=== PATIENT | male | born 1950 | race Caucasian/White ===

== ENCOUNTER 2017-02-12 23:15 | Observation (INO) | payer MEDICARE ==
[2017-02-13] MEDS ORDERED: SODIUM CHLORIDE 0.9% 1,000 ML IV ONE (00:30)
--- NOTE | 2017-02-13 00:33 | ED ---
Abdominal Pain HPI - General Source: patient, RN notes reviewed Mode of arrival: ambulatory Limitations: no limitations <Mandy Velasco - Last Filed: 02/13/17 04:26> <Gómez Judge - Last Filed: 02/13/17 04:52> - General Chief Complaint: Abdominal Pain Stated Complaint: abd pain Time Seen by Provider: 02/13/17 00:06 - History of Present Illness Initial Comments: Patient is a 66-year-old male presents to the emergency room for evaluation of abdominal pain. Patient states he has been constipated for the past 3 days. Patient states today, he drank 3 glasses of prune juice and had 3 large bowel movements. Patient states he still having abdominal pain. Patient states his abdomen is still gurgling. Patient denies nausea or vomiting. Patient states he's having 3 out of 10 pain. Patient states his stools were very dark. Patient denies fevers or chills. Patient denies headache or dizziness. Patient denies chest pain or shortness of breath. (Mandy Velasco) - Related Data Home Medications Medication Instructions Recorded Confirmed Aspirin 325 mg PO 1500 08/15/15 02/13/17 Atenolol [Tenormin] 25 mg PO 1500 08/15/15 02/13/17 Lisinopril [Zestril] 20 mg PO 1500 08/15/15 02/13/17 Loratadine [Claritin] 10 mg PO 1500 08/15/15 02/13/17 Simvastatin [Zocor] 40 mg PO 1500 08/15/15 02/13/17 metFORMIN HCL [Glucophage Xr] 500 mg PO 1500 08/15/15 02/13/17 Allergies Allergy/AdvReac Type Severity Reaction Status Date / Time codeine Allergy Unknown Verified 02/12/17 23:31 clarithromycin [From Biaxin] AdvReac Unknown Verified 02/12/17 23:31 Review of Systems ROS Other: All systems not noted in ROS Statement are negative. <Mandy Velasco - Last Filed: 02/13/17 04:26> ROS Other: All systems not noted in ROS Statement are negative. <Gómez Judge - Last Filed: 02/13/17 04:52> ROS Statement: Those systems with pertinent positive or pertinent negative responses have been documented in the HPI. Past Medical History Past Medical History: Coronary Artery Disease (CAD), Hyperlipidemia, Sleep Apnea /CPAP/BIPAP Additional Past Medical History / Comment(s): NO TX FOR SLEEP APNEA. "BS BORDERLINE, TAKES FOR PREVENTION." POS MINOR BLOOD IN STOOL, HAS HEMORRHOIDS. History of Any Multi-Drug Resistant Organisms: None Reported Past Surgical History: Heart Catheterization With Stent, Orthopedic Surgery Additional Past Surgical History / Comment(s): FINGER SURG. CARDIAC STENTS X3. Past Anesthesia/Blood Transfusion Reactions: No Reported Reaction Date of Last Stent Placement:: 09/2010 Past Psychological History: Depression Smoking Status: Current every day smoker Past Alcohol Use History: Occasional Past Drug Use History: None Reported - Past Family History Mother Sister(s) Family Medical History: Cancer <Mandy Velasco - Last Filed: 02/13/17 04:26> General Exam Limitations: no limitations General appearance: alert, in no apparent distress Head exam: Present: atraumatic, normocephalic, normal inspection Eye exam: Present: normal appearance ENT exam: Present: normal exam Neck exam: Present: normal inspection Respiratory exam: Present: normal lung sounds bilaterally. Absent: respiratory distress Cardiovascular Exam: Present: regular rate, normal rhythm, normal heart sounds GI/Abdominal exam: Present: soft, normal bowel sounds. Absent: distended, tenderness, guarding, rebound, rigid Rectal exam: Present: normal inspection, normal rectal tone, heme (+) stool Extremities exam: Present: normal inspection Back exam: Present: normal inspection Neurological exam: Present: alert, oriented X3, CN II-XII intact, normal gait Psychiatric exam: Present: normal affect, normal mood Skin exam: Present: warm, dry, intact, normal color. Absent: rash <Mandy Velasco - Last Filed: 02/13/17 04:26> <Gómez Judge - Last Filed: 02/13/17 04:52> - General Exam Comments Initial Comments: Laying in exam room, no acute distress. (Mandy Velasco) Medical Decision Making - Lab Data Result diagrams: 02/13/17 00:35 02/13/17 00:35 - Radiology Data Radiology results: report reviewed, image reviewed <Mandy Velasco - Last Filed: 02/13/17 04:26> - Lab Data Result diagrams: 02/13/17 00:35 02/13/17 00:35 <Gómez Judge - Last Filed: 02/13/17 04:52> - Medical Decision Making Patient is a 66-year-old male presents to the emergency room for evaluation of abdominal pain. Patient's hemoglobin 8.7. No other hemoglobin on file to compare to baseline. Patient does have a positive fecal occult. CT of abdomen/ pelvis negative for any acute findings. Will admit patient for reevaluation if hemoglobin level. Type and screen pending. (Mandy Velasco) I saw this patient in conjunction with the physician computer assistant. I performed independent history and physical exam. Agree with case management. (Gómez Judge) - Lab Data Lab Results 02/13/17 02/13/17 02/13/17 Range/Units 00:35 00:35 00:35 WBC 12.3 H (3.8-10.6) k/uL RBC 2.58 L (4.30-5.90) m/uL Hgb 8.7 L (13.0-17.5) gm/dL Hct 26.3 L (39.0-53.0) % MCV 102.1 H (80.0-100.0) fL MCH 33.8 (25.0-35.0) pg MCHC 33.1 (31.0-37.0) g/dL RDW 17.7 H (11.5-15.5) % Plt Count 342 (150-450) k/uL Neutrophils % 68 % Lymphocytes % 19 % Monocytes % 4 % Eosinophils % 5 % Basophils % 1 % Neutrophils # 8.4 H (1.3-7.7) k/uL Lymphocytes # 2.4 (1.0-4.8) k/uL Monocytes # 0.5 (0-1.0) k/uL Eosinophils # 0.6 (0-0.7) k/uL Basophils # 0.1 (0-0.2) k/uL Anisocytosis Slight Macrocytosis Moderate Sodium 141 (137-145) mmol/L Potassium 4.6 (3.5-5.1) mmol/L Chloride 104 (98-107) mmol/L Carbon Dioxide 26 (22-30) mmol/L Anion Gap 11 mmol/L BUN 14 (9-20) mg/dL Creatinine 1.00 (0.66-1.25) mg/dL Est GFR (MDRD) Af Amer >60 (>60 ml/min/1.73 sqM) Est GFR (MDRD) Non-Af >60 (>60 ml/min/1.73 sqM) Glucose 112 H (74-99) mg/dL Calcium 10.2 (8.4-10.2) mg/dL Total Bilirubin 0.3 (0.2-1.3) mg/dL AST 23 (17-59) U/L ALT 38 (21-72) U/L Alkaline Phosphatase 60 (38-126) U/L Total Protein 7.0 (6.3-8.2) g/dL Albumin 4.4 (3.5-5.0) g/dL Amylase 91 (30-110) U/L Lipase 232 (23-300) U/L Urine Color Urine Appearance (Clear) Urine pH (5.0-8.0) Ur Specific Bunn (1.001-1.035) Urine Protein (Negative) Urine Glucose (UA) (Negative) Urine Ketones (Negative) Urine Blood (Negative) Urine Nitrite (Negative) Urine Bilirubin (Negative) Urine Urobilinogen (<2.0) mg/dL Ur Leukocyte Esterase (Negative) Stool Occult Blood Positive (Negative) C. difficile (EIA) Intrp (Negative) 02/13/17 02/13/17 Range/Units 00:35 00:35 WBC (3.8-10.6) k/uL RBC (4.30-5.90) m/uL Hgb (13.0-17.5) gm/dL Hct (39.0-53.0) % MCV (80.0-100.0) fL MCH (25.0-35.0) pg MCHC (31.0-37.0) g/dL RDW (11.5-15.5) % Plt Count (150-450) k/uL Neutrophils % % Lymphocytes % % Monocytes % % Eosinophils % % Basophils % % Neutrophils # (1.3-7.7) k/uL Lymphocytes # (1.0-4.8) k/uL Monocytes # (0-1.0) k/uL Eosinophils # (0-0.7) k/uL Basophils # (0-0.2) k/uL Anisocytosis Macrocytosis Sodium (137-145) mmol/L Potassium (3.5-5.1) mmol/L Chloride (98-107) mmol/L Carbon Dioxide (22-30) mmol/L Anion Gap mmol/L BUN (9-20) mg/dL Creatinine (0.66-1.25) mg/dL Est GFR (MDRD) Af Amer (>60 ml/min/1.73 sqM) Est GFR (MDRD) Non-Af (>60 ml/min/1.73 sqM) Glucose (74-99) mg/dL Calcium (8.4-10.2) mg/dL Total Bilirubin (0.2-1.3) mg/dL AST (17-59) U/L ALT (21-72) U/L Alkaline Phosphatase (38-126) U/L Total Protein (6.3-8.2) g/dL Albumin (3.5-5.0) g/dL Amylase (30-110) U/L Lipase (23-300) U/L Urine Color Light Yellow Urine Appearance Clear (Clear) Urine pH 6.0 (5.0-8.0) Ur Specific Bunn 1.004 (1.001-1.035) Urine Protein Negative (Negative) Urine Glucose (UA) Negative (Negative) Urine Ketones Negative (Negative) Urine Blood Negative (Negative) Urine Nitrite Negative (Negative) Urine Bilirubin Negative (Negative) Urine Urobilinogen <2.0 (<2.0) mg/dL Ur Leukocyte Esterase Negative (Negative) Stool Occult Blood (Negative) C. difficile (EIA) Intrp Negative (Negative) Disposition Decision Date: 02/13/17 <Mandy Velasco - Last Filed: 02/13/17 04:26> <Gómez Judge - Last Filed: 02/13/17 04:52> Clinical Impression: GI bleed Disposition: ADMITTED IP TO THIS [facility] Condition: Stable Referrals: Slim Evans MD [Primary Care Provider] - 1-2 days
[2017-02-13 01:07] LABS: Appearance,Urine Clear (Clear); Bilirubin,Urine Negative (Negative); Glucose,Urine (UA) Negative (Negative); Ketones,Urine Negative (Negative); Leukocyte Esterase,Urine Negative (Negative); Nitrite,Urine Negative (Negative); Protein,Urine Negative (Negative); Specific Gravity,Urine 1.004 (1.001-1.035); UA Billing (MACRO vs. MICRO) CHEM; Urobilinogen,Urine <2.0 mg/dL (<2.0)
[2017-02-13 01:21] LABS: ALT 38 U/L (21-72); AST 23 U/L (17-59); Alkaline Phosphatase 60 U/L (38-126); Amylase 91 U/L (30-110); Anion Gap 11 mmol/L; Blood Urea Nitrogen 14 mg/dL (9-20); Calcium 10.2 mg/dL (8.4-10.2); Carbon Dioxide 26 mmol/L (22-30); Chloride 104 mmol/L (98-107); Glucose 112 mg/dL (74-99); Non-African American GFR(MDRD) >60 (>60 ml/min/1.73 sqM); Potassium 4.6 mmol/L (3.5-5.1); Sodium 141 mmol/L (137-145); Total Bilirubin 0.3 mg/dL (0.2-1.3)
[2017-02-13 01:31] LABS: Anisocytosis Slight; Basophils # (A) 0.1 k/uL (0-0.2); Basophils % (A) 1 %; CH 33.8; CHCM 33.5; Eosinophils # (A) 0.6 k/uL (0-0.7); Eosinophils % (A) 5 %; HCT 26.3 % (39.0-53.0); HDW 3.08; HGB 8.7 gm/dL (13.0-17.5); Luc # (Auto) 0.35; Luc % (Auto) 3; Lymphocytes # (A) 2.4 k/uL (1.0-4.8); Lymphocytes % (A) 19 %; MCH 33.8 pg (25.0-35.0); MCHC 33.1 g/dL (31.0-37.0); MCV 102.1 fL (80.0-100.0); Macrocytosis Moderate; Mean Platelet Volume 8.1; Monocytes # (A) 0.5 k/uL (0-1.0); Monocytes % (A) 4 %; Neutrophils # (A) 8.4 k/uL (1.3-7.7); Neutrophils % (A) 68 %; RBC 2.58 m/uL (4.30-5.90); RDW 17.7 % (11.5-15.5); WBC 12.3 k/uL (3.8-10.6); WBC (Perox) 12.82
[2017-02-13] MEDS ORDERED: RX INFO: IV CONTRAST WAS GIVEN 1 EACH MISC MISCELLANE PRN (02:10)
--- NOTE | 2017-02-13 03:10 | XR ---
EXAM: XR Abdomen Complete, 2 or More Views CLINICAL HISTORY: Reason: Pain TECHNIQUE: Frontal view of the abdomen/pelvis with upright and left lateral decubitus view of the abdomen. COMPARISON: No relevant prior studies available. FINDINGS: Intraperitoneal space: Nonspecific bowel gas pattern with scattered fluid levels within small and large bowel. No significant bowel dilatation to suggest bowel obstruction. No evidence of pneumoperitoneum. Small elongated gas lucency along the lateral right mid abdomen reflect gas within the appendix. Organs: No radiopaque renal calculi. No abnormal calcifications in the abdomen or pelvis. Bones/joints: Mild degenerative changes involving lower thoracic and lumbar spine. IMPRESSION: Nonspecific bowel gas pattern with scattered fluid levels raising possibility of mild ileus. No evidence of bowel obstruction or pneumoperitoneum.
--- NOTE | 2017-02-13 04:00 | CT ---
EXAM: CT Abdomen and Pelvis With Intravenous Contrast CLINICAL HISTORY: Reason: Pain TECHNIQUE: Axial computed tomography images of the abdomen and pelvis with intravenous contrast. CTDI is 18.40 mGy and DLP is QWQ9015.50 mGy-cm. This CT exam was performed using one or more of the following dose reduction techniques: automated exposure control, adjustment of the mA and/or kV according to patient size, and/or use of iterative reconstruction technique. COMPARISON: Radiographs from earlier same day. FINDINGS: Lower thorax: No acute findings. ABDOMEN: Liver: Hepatic fatty infiltration. No focal hepatic masses identified. Gallbladder and bile ducts: Unremarkable. No calcified stones. No ductal dilation. Pancreas: Unremarkable. No ductal dilation. Spleen: Unremarkable. No splenomegaly. Adrenals: Unremarkable. No mass. Kidneys and ureters: 5.0 cm exophytic right lower pole renal cyst. Additional subcentimeter hypodensities right and left kidney, too small to characterize. Small bilateral renal calcifications which may be vascular but cannot exclude small nonobstructing renal calculi.. No hydronephrosis. Stomach and bowel: Unremarkable. No bowel obstruction. Colonic diverticulosis without evidence of diverticulitis. Appendix: Normal appearing appendix. No evidence of appendicitis. PELVIS: Bladder: Unremarkable. No mass. Reproductive: Prostate gland mildly enlarged. ABDOMEN and PELVIS: Intraperitoneal space: Unremarkable. No free air. No abnormal fluid collection. Bones/joints: No acute bony abnormalities Soft tissues: Unremarkable. Vasculature: Moderate calcific atherosclerotic disease involving abdominal aorta and its branches. Mild lobulated aneurysmal dilatation of the distal abdominal aorta measuring 3.2 cm AP by 3.1 cm transverse in maximum diameter. Lymph nodes: No pathologically enlarged lymphadenopathy IMPRESSION: No evidence of acute abdominal-pelvic disease. Multiple other findings as described in body of report.
[2017-02-13] MEDS ORDERED: ONDANSETRON 4 MG/2 ML VIAL IVP PRN (04:17)
[2017-02-13] MEDS ORDERED: HYDROcodone/APAP 5-325MG 1 EACH TAB PO PRN (04:17)
[2017-02-13] MEDS ORDERED: NALOXONE 0.4 MG/ML 1 ML VIAL IV PRN (04:17)
[2017-02-13] MEDS ORDERED: ACETAMINOPHEN TAB 325 MG TAB PO PRN (04:17)
[2017-02-13] MEDS: SODIUM CHLORIDE 0.9% 1,000 ML IV SCH ×2 (05:23→13:46)
[2017-02-13 07:01] LABS: Glucose,Whole Blood 110 mg/dL (75-99)
--- NOTE | 2017-02-13 08:13 | P.HPIM ---
History of Present Illness Chief complaint: Abdominal pain and dark bowel movements. 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 He states he has had problems with his bowels over the past several weeks. Intermittently passing dark stools. Apparently he has been using MiraLAX to help move his bowels. Patient does take aspirin daily along with intermittent and infrequent anti-inflammatory medication usage. He denies any definite blood in the stool. The pain has been rather diffuse across the upper abdomen. Apparently for the past few days the pain has worsened and been more consistent. Patient denies nausea, vomiting or any chest pain or shortness of breath. Past medical history: Patient has had a colonoscopy back in August 2015. Mild diverticulosis was found on both the right and left sides of the colon. Apparently there was also some small internal and external hemorrhoids noted. No polyps. Patient has history of coronary artery disease and previous angioplasty and stenting of the right coronary artery back in August 2010. Previous surgery includes a hernia repair with mesh in the right inguinal area back in 2002. And also has had previous right thumb surgery. He also has history of hyperlipidemia along with the coronary artery disease and hypertension and history of diabetes and tobacco use disorder. Obesity No history of definitive myocardial infarction or stroke. Medications: metformin 500 mg daily for diabetes Aspirin 325 mg daily Atenolol 25 mg daily Lisinopril 20 mg daily Loratadine 10 mg daily for sinus Simvastatin 40 mg daily for cholesterol. ALLERGIES to codeine and Biaxin. Review of systems: No complaints of any unusual headache or visual disturbances. Patient denies any chest pain or shortness of breath. Gastrointestinal symptoms as described in the history of present illness. No unusual edema. Patient also denies any urinary symptoms. No hematuria. Family history:. Is positive for diabetes and cholesterol and stroke. Social history: Patient is presently retired. 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 Denies any excessive alcohol history but does have tobacco use disorder. Lives locally with his . Physical examination: The patient is alert and oriented. Vital signs revealed blood pressure 120/70 with a pulse of 70. Respiration 16 and was afebrile. Head and neck exam unremarkable. Extraocular movements intact. Neck supple. No carotid bruits or adenopathy or thyromegaly. Lungs are clear to auscultation. Heart tones were regular. No murmurs or rubs. Abdomen is somewhat obese but generally and nontender without organomegaly detected. Bowel sounds present. No rebound or guarding noted. Scrotal and rectal exam deferred. Stool for occult blood has been tested and positive. No distal edema. No focal neurological changes. He is alert and oriented. No cranial nerve deficits. No focal weakness noted. Laboratory results: Hemoglobin was down to 8.7. MCV was elevated. Other laboratory values revealed a mild elevation of blood sugar but otherwise unremarkable. Impressions: 1. Upper gastrointestinal bleeding with blood loss anemia likely rather acute in nature. Likely upper bleeding related to gastritis or peptic ulcer disease but other possibilities are present. 2. Other comorbidities as discussed include his underlying coronary artery disease 3. Hyperlipidemia 4. Type 2 diabetes 5. Obesity 6. Previous surgeries that include angioplasty of the right coronary artery with stenting and right inguinal hernia repair. 7. History of diverticulosis on colonoscopy last year. Plans: Patient has been placed on a clear liquid diet and will have repeat serial hemoglobins performed. His surgeon Dr. Doe has been consulted. At some point patient likely will need upper endoscopy for evaluation. Presently will hold aspirin and anti-inflammatory medication. Proton pump inhibitors. Discussed with patient and nursing staff. Past Medical History Past Medical History: Coronary Artery Disease (CAD), Hyperlipidemia, Sleep Apnea /CPAP/BIPAP Additional Past Medical History / Comment(s): NO TX FOR SLEEP APNEA. "BS BORDERLINE, TAKES FOR PREVENTION." POS MINOR BLOOD IN STOOL, HAS HEMORRHOIDS. History of Any Multi-Drug Resistant Organisms: None Reported Past Surgical History: Heart Catheterization With Stent, Orthopedic Surgery Additional Past Surgical History / Comment(s): FINGER SURG. CARDIAC STENTS X3. Past Anesthesia/Blood Transfusion Reactions: No Reported Reaction Date of Last Stent Placement:: 09/2010 Past Psychological History: Depression Smoking Status: Current every day smoker Past Alcohol Use History: Occasional Past Drug Use History: None Reported - Past Family History Mother Sister(s) Family Medical History: Cancer Medications and Allergies Home Medications Medication Instructions Recorded Confirmed Type Aspirin 325 mg PO DAILY@1500 08/15/15 02/13/17 History Atenolol [Tenormin] 25 mg PO DAILY@1500 08/15/15 02/13/17 History Lisinopril [Zestril] 20 mg PO DAILY@1500 08/15/15 02/13/17 History Loratadine [Claritin] 10 mg PO DAILY@1500 08/15/15 02/13/17 History Simvastatin [Zocor] 40 mg PO DAILY@1500 08/15/15 02/13/17 History metFORMIN HCL [Glucophage Xr] 500 mg PO DAILY@1500 08/15/15 02/13/17 History Allergies Allergy/AdvReac Type Severity Reaction Status Date / Time codeine Allergy Unknown Verified 02/12/17 23:31 clarithromycin [From Biaxin] AdvReac Unknown Verified 02/12/17 23:31 Physical Exam Vitals: Vital Signs Temp Pulse Pulse Resp BP BP Pulse Ox 02/13/17 05:41 97.3 F L 95 18 131/62 100 02/13/17 05:24 97.9 F 77 18 123/56 98 02/13/17 02:55 84 18 123/58 96 02/13/17 00:54 76 16 131/62 97 02/12/17 23:27 98.2 F 92 18 122/58 99 Intake and Output 02/12/17 02/13/17 02/13/17 22:59 06:59 14:59 Other: Weight 97.069 kg Results CBC & Chem 7: 02/13/17 00:35 02/13/17 00:35 Labs: Abnormal Lab Results - Last 24 Hours (Table) 02/13/17 02/13/17 02/13/17 Range/Units 00:35 00:35 06:58 WBC 12.3 H (3.8-10.6) k/uL RBC 2.58 L (4.30-5.90) m/uL Hgb 8.7 L (13.0-17.5) gm/dL Hct 26.3 L (39.0-53.0) % MCV 102.1 H (80.0-100.0) fL RDW 17.7 H (11.5-15.5) % Neutrophils # 8.4 H (1.3-7.7) k/uL Glucose 112 H (74-99) mg/dL POC Glucose (mg/dL) 110 H (75-99) mg/dL
[2017-02-13] MEDS: PANTOPRAZOLE 40 MG TABLET PO SCH ×2 (09:16→18:30)
[2017-02-13 09:19] LABS: Partial Thromboplastin Time 20.1 sec (22.0-30.0); Prothrombin Time 10.2 sec (9.0-12.0)
[2017-02-13 09:30] LABS: Anisocytosis Slight; Basophils % (A) 1 %; CH 32.9; CHCM 32.8; Eosinophils # (A) 0.6 k/uL (0-0.7); Eosinophils % (A) 6 %; HDW 3.04; HGB 7.4 gm/dL (13.0-17.5); Hypochromasia Slight; Luc # (Auto) 0.33; Luc % (Auto) 4; Lymphocytes # (A) 1.8 k/uL (1.0-4.8); Lymphocytes % (A) 20 %; MCHC 33.5 g/dL (31.0-37.0); MCV 101.4 fL (80.0-100.0); Macrocytosis Slight; Mean Platelet Volume 7.5; Monocytes # (A) 0.4 k/uL (0-1.0); Monocytes % (A) 4 %; Neutrophils % (A) 66 %; RBC 2.17 m/uL (4.30-5.90); RDW 17.1 % (11.5-15.5); WBC 9.2 k/uL (3.8-10.6); WBC (Perox) 9.62
[2017-02-13 10:35] VITALS: BMI 31.6
--- NOTE | 2017-02-13 11:39 | P.GSCN ---
History of Present Illness Consult date: 02/13/17 Reason for Consult: GI bleed History of present illness: Patient came to the hospital with complaints of abdominal pain and some black colored stools. He says he has been having constipation for the last 2-3 weeks. He has tried a variety of different stool softeners. He said he has had intermittent black colored stools during this time. He was having some vague left mid abdominal discomfort. CT showed no definite explanation for his abdominal pain. His hemoglobin was in the 8 range today it was in the 7 range. Per the patient it was recently checked as an outpatient and was 16. Denies abdominal pain now. He is actually quite anxious to go home. He was kept nothing by mouth for possible endoscopy. Last colonoscopy 1 year ago. He had an upper endoscopy many years ago that he says was normal. No history of ulcer disease. Review of Systems The patient denies any acute changes in vision or hearing, no dysphagia or odynophagia, no chest pain or shortness of breath, no dysuria or hematuria, no headache, no runny nose, no rectal bleeding, no unexplained weight loss Past Medical History Past Medical History: Coronary Artery Disease (CAD), Hyperlipidemia, Sleep Apnea /CPAP/BIPAP Additional Past Medical History / Comment(s): NO TX FOR SLEEP APNEA. "BS BORDERLINE, TAKES FOR PREVENTION." POS MINOR BLOOD IN STOOL, HAS HEMORRHOIDS. History of Any Multi-Drug Resistant Organisms: None Reported Past Surgical History: Heart Catheterization With Stent, Orthopedic Surgery Additional Past Surgical History / Comment(s): FINGER SURG. CARDIAC STENTS X3. Past Anesthesia/Blood Transfusion Reactions: No Reported Reaction Date of Last Stent Placement:: 09/2010 Past Psychological History: Depression Smoking Status: Current every day smoker Past Alcohol Use History: Occasional Past Drug Use History: None Reported - Past Family History Mother Sister(s) Family Medical History: Cancer Medications and Allergies Home Medications Medication Instructions Recorded Confirmed Type Aspirin 325 mg PO DAILY@1500 08/15/15 02/13/17 History Atenolol [Tenormin] 25 mg PO DAILY@1500 08/15/15 02/13/17 History Lisinopril [Zestril] 20 mg PO DAILY@1500 08/15/15 02/13/17 History Loratadine [Claritin] 10 mg PO DAILY@1500 08/15/15 02/13/17 History Simvastatin [Zocor] 40 mg PO DAILY@1500 08/15/15 02/13/17 History metFORMIN HCL [Glucophage Xr] 500 mg PO DAILY@1500 08/15/15 02/13/17 History Allergies Allergy/AdvReac Type Severity Reaction Status Date / Time codeine Allergy Unknown Verified 02/12/17 23:31 clarithromycin [From Biaxin] AdvReac Unknown Verified 02/12/17 23:31 Surgical - Exam Vital Signs Temp Pulse Resp BP Pulse Ox 98.2 F 92 18 122/58 99 02/12/17 23:27 02/12/17 23:27 02/12/17 23:27 02/12/17 23:27 02/12/17 23:27 Physical exam: General: Well-developed, well-nourished HEENT: Normocephalic, sclerae nonicteric Abdomen: Nontender, nondistended Extremities: No edema Neuro: Alert and oriented Results - Labs 02/13/17 08:34 02/13/17 00:35 Abnormal Lab Results - Last 24 Hours (Table) 02/13/17 02/13/17 02/13/17 Range/Units 00:35 00:35 06:58 WBC 12.3 H (3.8-10.6) k/uL RBC 2.58 L (4.30-5.90) m/uL Hgb 8.7 L (13.0-17.5) gm/dL Hct 26.3 L (39.0-53.0) % MCV 102.1 H (80.0-100.0) fL RDW 17.7 H (11.5-15.5) % Neutrophils # 8.4 H (1.3-7.7) k/uL APTT (22.0-30.0) sec Glucose 112 H (74-99) mg/dL POC Glucose (mg/dL) 110 H (75-99) mg/dL 02/13/17 02/13/17 Range/Units 08:32 08:34 WBC (3.8-10.6) k/uL RBC 2.17 L (4.30-5.90) m/uL Hgb 7.4 L (13.0-17.5) gm/dL Hct 22.0 L (39.0-53.0) % MCV 101.4 H (80.0-100.0) fL RDW 17.1 H (11.5-15.5) % Neutrophils # (1.3-7.7) k/uL APTT 20.1 L (22.0-30.0) sec Glucose (74-99) mg/dL POC Glucose (mg/dL) (75-99) mg/dL Diabetes panel 02/13/17 Range/Units 00:35 Sodium 141 (137-145) mmol/L Potassium 4.6 (3.5-5.1) mmol/L Chloride 104 (98-107) mmol/L Carbon Dioxide 26 (22-30) mmol/L BUN 14 (9-20) mg/dL Creatinine 1.00 (0.66-1.25) mg/dL Glucose 112 H (74-99) mg/dL Calcium 10.2 (8.4-10.2) mg/dL AST 23 (17-59) U/L ALT 38 (21-72) U/L Alkaline Phosphatase 60 (38-126) U/L Total Protein 7.0 (6.3-8.2) g/dL Albumin 4.4 (3.5-5.0) g/dL Calcium panel 02/13/17 Range/Units 00:35 Calcium 10.2 (8.4-10.2) mg/dL Albumin 4.4 (3.5-5.0) g/dL Pituitary panel 02/13/17 Range/Units 00:35 Sodium 141 (137-145) mmol/L Potassium 4.6 (3.5-5.1) mmol/L Chloride 104 (98-107) mmol/L Carbon Dioxide 26 (22-30) mmol/L BUN 14 (9-20) mg/dL Creatinine 1.00 (0.66-1.25) mg/dL Glucose 112 H (74-99) mg/dL Calcium 10.2 (8.4-10.2) mg/dL Adrenal panel 02/13/17 Range/Units 00:35 Sodium 141 (137-145) mmol/L Potassium 4.6 (3.5-5.1) mmol/L Chloride 104 (98-107) mmol/L Carbon Dioxide 26 (22-30) mmol/L BUN 14 (9-20) mg/dL Creatinine 1.00 (0.66-1.25) mg/dL Glucose 112 H (74-99) mg/dL Calcium 10.2 (8.4-10.2) mg/dL Total Bilirubin 0.3 (0.2-1.3) mg/dL AST 23 (17-59) U/L ALT 38 (21-72) U/L Alkaline Phosphatase 60 (38-126) U/L Total Protein 7.0 (6.3-8.2) g/dL Albumin 4.4 (3.5-5.0) g/dL Assessment and Plan (1) GI bleed Narrative/Plan: Will proceed with upper endoscopy today. Risks of bleeding, perforation discussed. Status: Acute
[2017-02-13 11:40] LABS: Glucose,Whole Blood 114 mg/dL (75-99)
[2017-02-13] MEDS ORDERED: LORATADINE 10 MG TAB PO SCH (15:00)
[2017-02-13] MEDS ORDERED: LISINOPRIL 20 MG TAB PO SCH (15:00)
[2017-02-13] MEDS ORDERED: ASPIRIN 325 MG TAB PO SCH (15:00)
[2017-02-13] MEDS ORDERED: ATORVASTATIN 20 MG TAB PO SCH (15:00)
[2017-02-13] MEDS ORDERED: ATENOLOL 25 MG TAB PO SCH (15:00)
[2017-02-13 17:30] LABS: Glucose,Whole Blood 109 mg/dL (75-99)
[2017-02-13] MEDS ORDERED: IV FLUID CONTINUATION 1,000 ML IV ONE (19:18)
[2017-02-13] MEDS ORDERED: LIDOCAINE 1% INJ 10MG/ML (20 ML MDV) ONE (19:27)
[2017-02-13] MEDS ORDERED: PROPOFOL 10 MG/ML 20 ML VIAL IV ONE (19:27)
--- NOTE | 2017-02-13 21:31 | P.PCN ---
Date of Procedure: 02/13/17 Preoperative Diagnosis: Postoperative Diagnosis: Procedure(s) Performed: Preoperative Dx: Upper GI bleed Postoperative Dx: Duodenal ulcer Procedure: EGD with Bx Anesthesia: Sedation Endoscopist: Dr. Doe Specimens: Antrum Endoscopic Procedure: The patient was on the endoscopy table in the left decubitus position. The Olympus gastroscope was inserted into the oropharynx and passed under direct visualization to the region of the third portion of the duodenum. From that point the scope was slowly withdrawn inspecting all surfaces carefully. There were no neoplastic inflammatory or polypoid lesions throughout second and third portions of the duodenum. At the duodenal bulb and the anterior position there was a 1 cm ulceration. No adherent clot or visible vessel was seen. There was bilious fluid in the duodenum and stomach. The pylorus was widely patent. The stomach was carefully inspected. There was gastritis present. A biopsy of the antrum took place to rule out H. pylori. Retroflexion revealed a normal hiatus. The esophagus was then carefully examined. There were no neoplastic inflammatory or polypoid lesions throughout the visualized esophagus. The patient was then taken to the recovery room in stable condition per anesthesia guidelines. Recommendations: Await biopsy results. Continue antiacid therapy. Decrease aspirin to 81 mg daily. Slowly advance diet. Repeat CBC tomorrow. Possible discharge tomorrow with plans for outpatient follow-up and short-term repeat upper endoscopy. Implants: Indications for Procedure: Operative Findings: Description of Procedure:
[2017-02-13 21:40] LABS: Glucose,Whole Blood 97 mg/dL (75-99)
[2017-02-14] MEDS: SODIUM CHLORIDE 0.9% 1,000 ML IV SCH ×2 (01:16→10:44)
[2017-02-14 07:28] LABS: Glucose,Whole Blood 101 mg/dL (75-99)
[2017-02-14 07:31] VITALS: BP 106/53; PULSE 75; RESP 18; TEMP 96.5
[2017-02-14] MEDS: PANTOPRAZOLE 40 MG TABLET PO SCH (07:53)
--- NOTE | 2017-02-14 08:27 | P.PN ---
Progress Note - Text the patient is a 66-year-old gentleman who presented yesterday to the emergency room with acute gastrointestinal bleeding. hemoglobin dropped down to 7.4. he has been tolerating it well. he denies any unusual shortness of breath or chest pain. he has not had any further melanotic stools since his initial presentation. he denies any abdominal pain or nausea and vomiting. he has been up ambulating without chest pain. vital signs reveal temperature of 96.5 with a pulse of 75 and respirations 18. Blood pressure is 106/53 and he is 99% saturated on room air. lung and heart exam is clear. Abdomen is nontender without organomegaly. No edema. No focal neurological deficits. no new lab values at this time. impressions and plans: patient was found by surgery on gastroscopy to have a duodenal ulcer which was not actively bleeding. we are awaiting results of this morning's hemoglobin and hematocrit. if this is stable, we anticipate patient can be discharged. Order has been placed pending results and okay with surgery. also patient was instructed to decrease his aspirin down to 81 mg daily. Protonix has been sent to the hospital pharmacy here at [facility] 40 mg twice a day for the first week and then 40 mg daily. patient follow-up with myself in 5-[address] Doe. He is to call or return to emergency room if any problems develop. Dr. Oliveira is health information coder for me if any concerns or problems.
[2017-02-14 08:52] LABS: Anisocytosis Slight; Basophils # (A) 0.1 k/uL (0-0.2); Basophils % (A) 1 %; CHCM 32.6; Eosinophils # (A) 0.6 k/uL (0-0.7); Eosinophils % (A) 7 %; HCT 23.7 % (39.0-53.0); HGB 7.7 gm/dL (13.0-17.5); Hypochromasia Slight; Luc # (Auto) 0.28; Luc % (Auto) 3; Lymphocytes # (A) 1.9 k/uL (1.0-4.8); Lymphocytes % (A) 21 %; MCH 33.3 pg (25.0-35.0); MCHC 32.6 g/dL (31.0-37.0); MCV 102.2 fL (80.0-100.0); Macrocytosis Moderate; Mean Platelet Volume 7.2; Monocytes # (A) 0.4 k/uL (0-1.0); Monocytes % (A) 4 %; Neutrophils # (A) 5.8 k/uL (1.3-7.7); Neutrophils % (A) 65 %; RBC 2.32 m/uL (4.30-5.90); RDW 16.6 % (11.5-15.5); WBC 8.9 k/uL (3.8-10.6); WBC (Perox) 8.65
--- NOTE | 2017-02-19 12:11 | DS ---
Mr. Gomes is a 66-year-old gentleman who presented to the emergency room with weakness and dark melenic stools. Please refer to history and physical. They were occult blood positive. Subsequent hemoglobin reveals initial 8.7. He continued to have melenic stool in the emergency room. Further hemoglobin returned at 7.4. Consultation was obtained with Dr. Doe from Surgery and patient underwent upper gastroscopy which revealed a 1 cm ulcer but no evidence of active bleeding. There was also some gastritis. Patient also had a CAT scan performed which revealed some renal cysts. There was a 5 cm right lower pole exophytic cyst on the right side. Other small bilateral renal calcifications were present but there was no evidence of acute abdominal pelvic disease. Patient did not have further melenic stools and hemoglobin stabilized at 7.7 and patient was placed also on Protonix and at this point he will continue on Protonix twice a day for another week and then daily for another 2 months. Patient was to also decrease his aspirin from 325 mg down to 81 mg. He may resume his home medications that include his atenolol 25 mg daily, Claritin for sinus 10 mg daily, Zocor for cholesterol 40 mg daily, metformin 500 mg daily. He is to hold his lisinopril 20 mg daily as his blood pressure has been in the low normal range and followup in the office in 1 week or sooner if he has any concerns or problems he is to call or return to the emergency room. Diet to be as tolerated. Activity is as tolerated although no exertional strenuous activities during this period until followup. FINAL DISCHARGE DIAGNOSES: Acute upper gastrointestinal hemorrhage with acute blood loss anemia secondary to a 1 cm duodenal ulcer and gastritis associated with some weakness and abdominal pain. Patient also has other history of coronary artery disease with previous angioplasty and stenting of the right coronary artery in 2010. There is a history of hyperlipidemia, also history of hypertension. Also history of type 2 diabetes and also history of tobacco use disorder. He has had previous hernia repair with mesh in the right inguinal area back in 2002 and previous right thumb surgery and he did have gastroscopy performed on this admission. Subsequently biopsy was positive for H Pylori and patient was instructed to take 2 antibiotics along with his proton pump inhibitor for 10 days. [facility]
== END 2017-02-14 11:10 | disposition home or self-care (01) ==
LOC: EC 23:15 → 4MS4W 02-13 04:50
PROVIDERS: ADMIT Internal Medicine; ATTEND Internal Medicine
DX: K29.71 Gastritis, unspecified, with bleeding (principal); B96.81 Helicobacter pylori [H. pylori] as the cause of diseases classified elsewhere; K59.00 Constipation, unspecified; I25.10 Atherosclerotic heart disease of native coronary artery without angina pectoris; G47.30 Sleep apnea, unspecified; E78.5 Hyperlipidemia, unspecified; F17.200 Nicotine dependence, unspecified, uncomplicated; F32.9 Major depressive disorder, single episode, unspecified; K57.30 Diverticulosis of large intestine without perforation or abscess without bleeding; K64.8 Other hemorrhoids; I10 Essential (primary) hypertension; E11.9 Type 2 diabetes mellitus without complications; E66.9 Obesity, unspecified; D50.0 Iron deficiency anemia secondary to blood loss (chronic); K26.9 Duodenal ulcer, unspecified as acute or chronic, without hemorrhage or perforation; N28.1 Cyst of kidney, acquired; Z68.31 Body mass index [BMI] 31.0-31.9, adult; Z99.89 Dependence on other enabling machines and devices; Z95.5 Presence of coronary angioplasty implant and graft; Z88.5 Allergy status to narcotic agent; Z88.1 Allergy status to other antibiotic agents; Z79.84 Long term (current) use of oral hypoglycemic drugs; Z79.899 Other long term (current) drug therapy; Z79.82 Long term (current) use of aspirin
CPT/HCPCS: 96361; 96360; 99285; 36415; 86900; 86901; 88305; 80053; 82150; 83690; 85025 ×2; 85610; 85730; 86850; 82272; 81003; 88342; 87324; 89055; 74020; 74177; 43239; G0378 ×2; J2001; Q9967; J2704

== ENCOUNTER 2018-11-22 06:03 | Emergency (ER) | payer MEDICARE ==
[2018-11-22 06:21] VITALS: BP 137/77; PULSE 64; RESP 20; TEMP 98.1
[2018-11-22 06:52] LABS: Basophils # (A) 0.1 k/uL (0-0.2); Basophils % (A) 1 %; Eosinophils # (A) 0.8 k/uL (0-0.7); Eosinophils % (A) 9 %; HGB 16.5 gm/dL (13.0-17.5); Lymphocytes # (A) 1.6 k/uL (1.0-4.8); Lymphocytes % (A) 16 %; MCH 31.5 pg (25.0-35.0); MCHC 32.4 g/dL (31.0-37.0); MCV 97.2 fL (80.0-100.0); Mean Platelet Volume 8.2; Monocytes # (A) 0.6 k/uL (0-1.0); Monocytes % (A) 6 %; Neutrophils # (A) 6.3 k/uL (1.3-7.7); Neutrophils % (A) 65 %; Platelet Count 227 k/uL (150-450); RBC 5.25 m/uL (4.30-5.90); RDW 14.6 % (11.5-15.5); WBC 9.7 k/uL (3.8-10.6)
--- NOTE | 2018-11-22 06:58 | ED ---
Abdominal Pain HPI - General Chief Complaint: Abdominal Pain Stated Complaint: Lower back,flank pain Time Seen by Provider: 11/22/18 06:22 Source: patient Mode of arrival: ambulatory Limitations: no limitations - History of Present Illness Initial Comments: He knows a 68-year-old gentleman who presents the emergency department this morning for evaluation of left-sided flank pain. Patient reports she's been having left-sided flank pain for approximately 2 weeks that occurs intermittently without provocation. Patient reports that when he has the pain is located in the left flank with radiation towards the back. Pain is not associated with any change in bowel or bladder habits. Patient last colonoscopy was last year and was normal. Patient has no history of colitis or diverticulitis. Patient does have a history of kidney stones in the past but reports that it did not last this long. Patient has no other pathology and doesn't follow with urology. Patient denies any hematuria dysuria or urinary frequency. He isn't every day cigarette smoker. Patient reports that around 3 AM he began having an episode of pain in his left flank and just couldn't get comfortable which prompted him to ask his to bring of the ER for evaluation. - Related Data Home Medications Medication Instructions Recorded Confirmed Atenolol [Tenormin] 25 mg PO DAILY@1500 08/15/15 05/17/17 Loratadine [Claritin] 10 mg PO DAILY@1500 08/15/15 05/17/17 Simvastatin [Zocor] 40 mg PO DAILY@1500 08/15/15 05/17/17 metFORMIN HCL [Glucophage Xr] 500 mg PO DAILY@1500 08/15/15 05/17/17 Ferrous Sulfate [Feosol] 325 mg PO DAILY 05/15/17 05/17/17 Lisinopril [Zestril] 10 mg PO 1500 05/15/17 05/17/17 Pantoprazole [Protonix] 40 mg PO 1500 05/15/17 05/17/17 Previous Rx's Medication Instructions Recorded Aspirin 81 mg PO DAILY #30 chewable 02/14/17 Ibuprofen [Motrin] 600 mg PO Q6HR PRN #30 tab 11/22/18 Lidocaine 5% Patch [Lidoderm] 1 patch TOPICAL DAILY #30 patch 11/22/18 Allergies Allergy/AdvReac Type Severity Reaction Status Date / Time codeine Allergy Unknown Verified 11/22/18 06:20 clarithromycin [From Biaxin] AdvReac Unknown Verified 11/22/18 06:20 Review of Systems ROS Statement: Those systems with pertinent positive or pertinent negative responses have been documented in the HPI. ROS Other: All systems not noted in ROS Statement are negative. Past Medical History Past Medical History: Coronary Artery Disease (CAD), Diabetes Mellitus, Hyperlipidemia, Hypertension, Sleep Apnea/CPAP/BIPAP Additional Past Medical History / Comment(s): NO TX FOR SLEEP APNEA. "BS BORDERLINE, TAKES FOR PREVENTION," HEMORRHOIDS. recent anemia, ulcer History of Any Multi-Drug Resistant Organisms: None Reported Past Surgical History: Heart Catheterization With Stent, Hernia Repair, Orthopedic Surgery Additional Past Surgical History / Comment(s): FINGER SURG. CARDIAC STENTS X3, colonoscopy, recent EGD Past Anesthesia/Blood Transfusion Reactions: No Reported Reaction Date of Last Stent Placement:: 09/2010 Past Psychological History: Depression Smoking Status: Current every day smoker Past Alcohol Use History: Rare Past Drug Use History: None Reported - Past Family History Mother Sister(s) Family Medical History: Cancer General Exam - General Exam Comments Initial Comments: Physical Exam GENERAL: Patient is well-developed and well-nourished. Patient is nontoxic and well-hydrated and is in no distress. HENT: Normocephalic, Atraumatic. EYES: PERRL, EOMI PULMONARY: Unlabored respirations. No audible rales rhonchi or wheezing was noted. CARDIOVASCULAR: There is a regular rate and rhythm without any murmurs gallops or rubs. ABDOMEN: Obese, Soft and nontender with normal bowel sounds. Pain to percussion of the left flank SKIN: Skin is clear with no lesions or rashes and otherwise unremarkable. : Deferred NEUROLOGIC: Patient is alert and oriented x3. Moving all extremities spontaneously MUSCULOSKELETAL: Normal extremities with adequate strength and full range of motion. No lower extremity swelling or edema. No calf tenderness. PSYCHIATRIC: Normal psychiatric evaluation. Limitations: no limitations Course Vital Signs 11/22/18 06:14 Temperature 98.1 F Pulse Rate 64 Respiratory 20 Rate Blood Pressure 137/77 O2 Sat by Pulse 96 Oximetry Medical Decision Making - Medical Decision Making The patient was seen and evaluated, history is obtained from the patient This is a patient with left-sided flank pain is been occurring intermittently for 2 weeks duration pain occurs without provocation patient cannot find a comfortable position or any relieving factors when the pain occurs and then it resolves without prevention. Pain began at 3 AM this morning that resolved prior to arrival. Labs and imaging were ordered There were no acute findings, results were discussed with patient. Patient then reported that he does note that he has had worsening sinus pressure postnasal drip coughing and frequent sneezing over the past 2-3 weeks and feels like he likely pulled a muscle in his ribs. At this time patient's comfortable with the plan for discharge home with treatment of musculoskeletal pain. All questions pertaining care were answered return parameters were discussed patient was discharged home in stable condition. - Lab Data Result diagrams: 11/22/18 06:35 11/22/18 06:35 Lab Results 11/22/18 11/22/18 11/22/18 Range/Units 06:33 06:35 06:35 WBC 9.7 (3.8-10.6) k/uL RBC 5.25 (4.30-5.90) m/uL Hgb 16.5 (13.0-17.5) gm/dL Hct 51.0 (39.0-53.0) % MCV 97.2 (80.0-100.0) fL MCH 31.5 (25.0-35.0) pg MCHC 32.4 (31.0-37.0) g/dL RDW 14.6 (11.5-15.5) % Plt Count 227 (150-450) k/uL Neutrophils % 65 % Lymphocytes % 16 % Monocytes % 6 % Eosinophils % 9 % Basophils % 1 % Neutrophils # 6.3 (1.3-7.7) k/uL Lymphocytes # 1.6 (1.0-4.8) k/uL Monocytes # 0.6 (0-1.0) k/uL Eosinophils # 0.8 H (0-0.7) k/uL Basophils # 0.1 (0-0.2) k/uL Sodium 140 (137-145) mmol/L Potassium 4.7 (3.5-5.1) mmol/L Chloride 109 H (98-107) mmol/L Carbon Dioxide 21 L (22-30) mmol/L Anion Gap 10 mmol/L BUN 18 (9-20) mg/dL Creatinine 1.00 (0.66-1.25) mg/dL Est GFR (CKD-EPI)AfAm 89 (>60 ml/min/1.73 sqM) Est GFR (CKD-EPI)NonAf 77 (>60 ml/min/1.73 sqM) Glucose 172 H (74-99) mg/dL Calcium 9.6 (8.4-10.2) mg/dL Total Bilirubin 0.4 (0.2-1.3) mg/dL AST 20 (17-59) U/L ALT 42 (21-72) U/L Alkaline Phosphatase 96 (38-126) U/L Total Protein 7.3 (6.3-8.2) g/dL Albumin 4.4 (3.5-5.0) g/dL Amylase 91 (30-110) U/L Lipase 226 (23-300) U/L Urine Color Yellow Urine Appearance Clear (Clear) Urine pH 5.5 (5.0-8.0) Ur Specific [place] 1.018 (1.001-1.035) Urine Protein Negative (Negative) Urine Glucose (UA) 3+ H (Negative) Urine Ketones Negative (Negative) Urine Blood Negative (Negative) Urine Nitrite Negative (Negative) Urine Bilirubin Negative (Negative) Urine Urobilinogen 1.0 (<2.0) mg/dL Ur Leukocyte Esterase Negative (Negative) Urine RBC 2 (0-5) /hpf Urine WBC 1 (0-5) /hpf Ur Squamous Epith Cells <1 (0-4) /hpf Hyaline Casts 3 H (0-2) /lpf Urine Mucus Rare H (None) /hpf Disposition Clinical Impression: Left flank pain Disposition: HOME SELF-CARE Condition: Stable Instructions (If sedation given, give patient instructions): Muscle Strain (DC) Prescriptions: Lidocaine 5% Patch [Lidoderm] 1 patch TOPICAL DAILY #30 patch Ibuprofen [Motrin] 600 mg PO Q6HR PRN #30 tab PRN Reason: Pain Is patient prescribed a controlled substance at d/c from ED?: No Referrals: Slim Evans MD [Primary Care Provider] - 1-2 days
--- NOTE | 2018-11-22 07:04 | XR ---
EXAM: XR Abdomen, 1 View CLINICAL HISTORY: ITS.REASON XR Reason: abdominal pain left sided x2wk TECHNIQUE: Frontal supine view of the abdomen/pelvis. COMPARISON: No relevant prior studies available. FINDINGS: Gastrointestinal tract: Unremarkable. No dilation. Bones/joints: Unremarkable. IMPRESSION: Normal abdominal x-ray.
[2018-11-22 07:17] LABS: Albumin 4.4 g/dL (3.5-5.0); Calcium 9.6 mg/dL (8.4-10.2); Potassium 4.7 mmol/L (3.5-5.1); Total Bilirubin 0.4 mg/dL (0.2-1.3); Total Protein 7.3 g/dL (6.3-8.2)
[2018-11-22 07:18] LABS: Hyaline Casts,Urine 3 /lpf (0-2); Mucus,Urine Rare /hpf; RBC,Urine 2 /hpf (0-5); Squamous Epithelial Cell,Urine <1 /hpf (0-4); WBC,Urine 1 /hpf (0-5)
[2018-11-22 07:19] LABS: Appearance,Urine Clear (Clear); Bilirubin,Urine Negative (Negative); Blood,Urine Negative (Negative); Color,Urine Yellow; Glucose,Urine (UA) 3+ (Negative); Ketones,Urine Negative (Negative); PH, Urine 5.5 (5.0-8.0); Protein,Urine Negative (Negative); Specific Gravity,Urine 1.018 (1.001-1.035)
[2018-11-22 07:20] LABS: Leukocyte Esterase,Urine Negative (Negative); Nitrite,Urine Negative (Negative)
== END 2018-11-22 07:59 | disposition home or self-care (01) ==
LOC: EC 06:03
DX: R10.9 Unspecified abdominal pain (principal); M54.5 Low back pain; I25.10 Atherosclerotic heart disease of native coronary artery without angina pectoris; E11.9 Type 2 diabetes mellitus without complications; E78.5 Hyperlipidemia, unspecified; I10 Essential (primary) hypertension; F17.200 Nicotine dependence, unspecified, uncomplicated; G47.30 Sleep apnea, unspecified; Z99.89 Dependence on other enabling machines and devices; Z95.5 Presence of coronary angioplasty implant and graft; Z87.442 Personal history of urinary calculi; Z79.84 Long term (current) use of oral hypoglycemic drugs; Z79.899 Other long term (current) drug therapy; Z88.5 Allergy status to narcotic agent; Z88.1 Allergy status to other antibiotic agents
CPT/HCPCS: 36415; 74018; 80053; 81003; 82150; 83690; 85025; 99284

== ENCOUNTER 2022-06-01 09:33 | Day surgery (SDC) | payer MEDICARE ==
[~2022-06-01 09:33] MED LIST: MOXIFLOXACIN HCL 0.5% DROPS 3 ML BTL OP PRN; TETRACAINE 0.5% OPHTH (PF) DROPS 4 ML BTL OP PRN; TIMOLOL 0.5% OPHTH DROPS 5 ML BTL OP PRN
[2022-06-01] MEDS: LACTATED RINGERS 1,000 ML IV SCH ×2 (10:00→10:13)
[2022-06-01 10:09] VITALS: RESP 16; TEMP 97.9
[2022-06-01 10:16] LABS: Glucose,Whole Blood 94 mg/dL (70-110)
[2022-06-01] MEDS: CYCLOPENTOLATE 1% OPHTH SOLN 2 ML BTL OP PRN ×3 (10:16→10:29)
[2022-06-01] MEDS: PHENYLEPHRINE 2.5% OPHTH DRP 2ML OP PRN ×3 (10:20→10:33)
[2022-06-01] MEDS ORDERED: fentaNYL (PF) 50 MCG/ML 2 ML AMP ONE (11:11)
[2022-06-01] MEDS ORDERED: MIDAZOLAM 2 MG/2 ML VIAL ONE (11:11)
[2022-06-01] MEDS ORDERED: EPINEPHrine (PF) 0.3 ML in BALANCED SALT IRRIG SOLN COMB2 500 ML IRRIGATION ONE (11:32)
[2022-06-01] MEDS ORDERED: BALANCED SALT IRRIG SOLN COMB2 15 ML IRRIG.SOLN IRRIGATION ONE (11:39)
[2022-06-01] MEDS ORDERED: HYALURONATE SODIUM INTRAOCULAR 1 EACH SYRINGE (12MG/ML) INTRAOCULA ONE (11:39)
[2022-06-01] MEDS ORDERED: LIDOCAINE 1% (PF) 10MG/ML VIAL MISCELLANE ONE (11:42)
--- NOTE | 2022-06-01 11:48 | P.OP ---
Date of Procedure: 06/01/22 Preoperative Diagnosis: NS & reg astig Postoperative Diagnosis: same Procedure(s) Performed: PIOL, OD Implants: [id number] 22.00 Anesthesia: MAC Surgeon: Alonso Catalan Pathology: none sent Condition: stable Disposition: same day Indications for Procedure: blurry vision Operative Findings: no complications
[2022-06-01 12:20] VITALS: BP 143/82; PULSE 59
--- NOTE | 2022-06-02 01:06 | OP ---
OPERATIVE REPORT PROCEDURES PERFORMED: Phacoemulsification of cataract and intraocular lens implant of the right eye. PREOPERATIVE DIAGNOSIS: Nuclear sclerosis. POSTOPERATIVE DIAGNOSIS: Nuclear sclerosis. ANESTHESIA: Topical. ESTIMATED BLOOD LOSS: None. SPECIMEN TAKEN: None. NARRATIVE: After obtaining the appropriate consent, the patient was brought to the operating room. He was then asked to sit upright in the axis of 0 and 180 degrees were identified and marked with a gentian nichol marker. He was then placed in the proper supine position under cardiac monitoring and prepped and draped in the usual sterile manner. Using previously acquired corneal topography information, a [facility] axis marker set to 10 degrees was inked with gentian nichol and this was placed over the patient's Purkinje reflex, leaving a mckenna on the patient's limbus. At the 11 o'clock position, an MVR blade was used to create a paracentesis port. Through this opening, 1% Xylocaine MPF 50:50 mix of balanced salt solution was injected into the anterior chamber. This was followed by stabilization of the anterior chamber with Amvisc. At the 9 o'clock position, a 2.5 mm keratome was used to create a self-sealing corneal flap incision. Through this opening, a cystotome was introduced to begin a continuous tear capsulorrhexis which was then completed using the Utrata forceps. Hydrodissection and hydrodelineation of the lens was accomplished with balanced salt solution. Phacoemulsification of the lens utilizing phaco chop was accomplished in 13.85 seconds at 23% power. Additional Xylocaine MPF was instilled into the anterior chamber. This was followed by removal of the remaining cortical material as well as careful polishing of the posterior capsule under irrigation and aspiration. Additional Amvisc was then used to stabilize the capsular bag and a Bausch and Lomb MX 60ET 22.0 diopter by 2 diopter cylindrical Toric implant was inserted into the capsular bag without difficulty. The remaining viscoelastic was removed from in and around the intraocular lens. The lens was then rotated using a Sinskey hook, so that the axis of the lens oriented correctly with the 10-degree mckenna placed on the patient's corneal limbus earlier in the procedure. The eye was then brought to normal intraocular pressure through the paracentesis port. A Weck-Carissa was used to dry both the paracentesis as well as the temporal incisions and Tisseel was used to secure both wounds. Once the Tisseel had cured, the patient then received 2 drops of 0.5% timolol followed by 2 drops of moxifloxacin. He was then lightly patched and shielded in the usual manner. There were no complications from the procedure. He tolerated the procedure well and was returned to outpatient recovery in good condition. ANSHUL / KATIE: [id number] /
== END 2022-06-01 12:50 | disposition home or self-care (01) ==
LOC: OR 09:33
PROVIDERS: ATTEND Ophthalmology
DX: H25.11 Age-related nuclear cataract, right eye (principal); I10 Essential (primary) hypertension; E78.5 Hyperlipidemia, unspecified; E11.9 Type 2 diabetes mellitus without complications; I25.10 Atherosclerotic heart disease of native coronary artery without angina pectoris; J44.9 Chronic obstructive pulmonary disease, unspecified; G47.33 Obstructive sleep apnea (adult) (pediatric); F32.A Depression, unspecified; K21.9 Gastro-esophageal reflux disease without esophagitis; Z88.5 Allergy status to narcotic agent; Z79.899 Other long term (current) drug therapy
CPT/HCPCS: 66984; V2787; C1780; J2250; J0171; J3010; J2001

== ENCOUNTER 2022-07-04 07:35 | Day surgery (SDC) | payer MEDICARE, OTHER ==
[2022-07-02 10:25] VITALS: BMI 30.5
[~2022-07-04 07:35] MED LIST changes: +LACTATED RINGERS 1,000 ML IV SCH; +LIDOCAINE 1% (10MG/ML) FOR IV START INTRADERMA PRN
[2022-07-04] MEDS ORDERED: LACTATED RINGERS 1,000 ML IV ONE (08:05)
[2022-07-04] MEDS: PHENYLEPHRINE 2.5% OPHTH DRP 2ML OP PRN ×3 (08:08→08:20)
[2022-07-04] MEDS: CYCLOPENTOLATE 1% OPHTH SOLN 2 ML BTL OP PRN ×3 (08:11→08:23)
[2022-07-04 08:17] LABS: Glucose,Whole Blood 114 mg/dL (70-110)
[2022-07-04 08:31] VITALS: TEMP 97
[2022-07-04] MEDS ORDERED: ONDANSETRON 4 MG/2 ML VIAL ONE (08:37)
[2022-07-04] MEDS ORDERED: ONDANSETRON 4 MG/2 ML VIAL IVP ONE (08:41)
[2022-07-04] MEDS ORDERED: DEXAMETHASONE SOD PHOSPHATE 4 MG/ML 1 ML VIAL IVP ONE (08:41)
[2022-07-04] MEDS ORDERED: MIDAZOLAM 2 MG/2 ML VIAL ONE (09:01)
[2022-07-04] MEDS ORDERED: fentaNYL (PF) 50 MCG/ML 2 ML AMP ONE (09:01)
[2022-07-04] MEDS ORDERED: TIMOLOL 0.5% OPHTH DROPS 5 ML BTL LEFT EYE ONE (09:06)
[2022-07-04] MEDS ORDERED: MOXIFLOXACIN HCL 0.5% DROPS 3 ML BTL LEFT EYE ONE (09:06)
[2022-07-04] MEDS ORDERED: LIDOCAINE 1% (PF) 10MG/ML VIAL INTRAARTIC ONE (09:17)
[2022-07-04] MEDS ORDERED: HYALURONATE SODIUM INTRAOCULAR 1 EACH SYRINGE (12MG/ML) INTRAOCULA ONE (09:17)
[2022-07-04] MEDS ORDERED: BALANCED SALT IRRIG SOLN COMB2 15 ML IRRIG.SOLN INTRAOCULA ONE (09:17)
--- NOTE | 2022-07-04 09:27 | P.OP ---
Date of Procedure: 07/04/22 Preoperative Diagnosis: NS Postoperative Diagnosis: same Procedure(s) Performed: PIOL, OS Implants: [id number] 22.00 Anesthesia: MAC Surgeon: Alonso Catalan Pathology: none sent Condition: stable Disposition: same day Indications for Procedure: blurry visoin Operative Findings: no complications
[2022-07-04 10:14] VITALS: BP 96/54; PULSE 56; RESP 20
--- NOTE | 2022-07-04 12:14 | OP ---
OPERATIVE REPORT PROCEDURES PERFORMED: Phacoemulsification of cataract and intraocular lens implant of the left eye. PREOPERATIVE DIAGNOSIS: Nuclear sclerosis. POSTOPERATIVE DIAGNOSIS: Nuclear sclerosis. ESTIMATED BLOOD LOSS: Zero. SPECIMEN TAKEN: None. NARRATIVE: After obtaining the appropriate consent, the patient was brought to the operating room where the patient was placed under cardiac monitoring and prepped and draped in the usual sterile manner. At the 5 o'clock position, a 15-degree super sharp blade was used to create a paracentesis followed by instillation of 1% Xylocaine MPF 50:50 mix with BSS into the anterior chamber. This was followed by Amvisc viscoelastic to stabilize the anterior chamber. At the 3 o'clock position a self-sealing corneal flap incision was created using 2.8 mm anuel keratome. A cystotome was used to initiate a continuous tear capsulorrhexis which was completed with the Utrata forceps. A Binkhorst cannula was used to hydrodissect the lens nucleus followed by hydrodelineation. Phacoemulsification of the lens was performed utilizing phacochop in 11.75 seconds at 17% power. The remaining cortical material was removed using the irrigation aspiration mode followed by additional 1% Xylocaine MPF into the anterior chamber followed by viscoelastic to stabilize the capsular bag. A Bausch and Lomb MX 60E 22.0 diopter posterior chamber lens was placed into the capsular bag without difficulty. The remaining viscoelastic material was removed from the anterior chamber with the irrigation/aspiration. Balanced salt solution was used to normalize the intraocular pressure. The incision was checked for watertight integrity. The patient then received 2 drops of 0.5% timolol followed by 2 drops Vigamox, was lightly patched and shielded in the usual manner. There were no complications from the procedure. The patient tolerated the procedure well and was returned to recovery in good condition. MMODL / IJN: [id number] /
== END 2022-07-04 10:19 | disposition home or self-care (01) ==
LOC: OR 07:35
PROVIDERS: ATTEND Ophthalmology
DX: H25.12 Age-related nuclear cataract, left eye (principal); Z04.9 Encounter for examination and observation for unspecified reason
CPT/HCPCS: 66984; C1780; J2250; J1100; J2405; J3010; J2001

== ENCOUNTER → 2022-11-28 | Outpatient (CLI) | payer MEDICARE ==
--- NOTE | 2022-11-28 08:16 | CTL ---
EXAMINATION TYPE: CT Low Dose Lung DATE OF EXAM ORDERED: 11/28/2022 HISTORY: Z87.891 PERSONAL HISTORY OF NICOTINE DEPENDENCE. Lung cancer screening CT DLP: 129.[address] CTDI: 3.5 mGy Automated exposure control for dose reduction was used. SCREENING VISIT: First screening visit COMPARISON: None TECHNIQUE: Low dose computed tomography scan was performed through the chest at 1 mm thick sections a nd reconstructed images in multiple planes at 1 mm and [address] DIAGNOSTIC QUALITY: Satisfactory FINDINGS: LUNG NODULES: 8 mm left upper lobe nodular density with surrounding reticular groundglass (series 3, image 54). Few scattered calcified granulomas. LUNGS: COPD: Severity: Mild Fibrosis: Severity: Mild Lymph nodes: None Other findings: None RIGHT PLEURAL SPACE: Effusion: None Calcification: None Thickening: None Pneumothorax: None LEFT PLEURAL SPACE: Effusion: None Calcification: None Thickening: None Pneumothorax: None HEART: Heart Size: Normal Coronary Calcification: Large Pericardial Effusion: None OTHER FINDINGS: Upper abdomen: None Bony thorax: No acute osseous abnormality. Mild multilevel degenerative disc disease of the thoracic spine. Supraclavicular region: None Other: None IMPRESSION: 1. Left upper lobe 8 mm nodular density with surrounding reticular groundglass opacities. This may r epresent infectious/inflammatory nodule. 2. Severe coronary artery calcifications. CT LUNG RAD AND CT CHEST RECOMMENDATION: Lung-Rad 4A Suspicious: Follow-up 3 month LDCT or PET/CT may be used when there is a > 8 mm solid component.
== END | disposition home or self-care (01) ==
LOC: RADCTMAIN 06:33
PROVIDERS: ATTEND Internal Medicine Geriatric Medicine
DX: Z12.2 Encounter for screening for malignant neoplasm of respiratory organs (principal); F17.210 Nicotine dependence, cigarettes, uncomplicated; I25.10 Atherosclerotic heart disease of native coronary artery without angina pectoris; J98.4 Other disorders of lung; R91.8 Other nonspecific abnormal finding of lung field
CPT/HCPCS: 71271

== ENCOUNTER → 2023-03-11 | Outpatient (CLI) | payer MEDICARE ==
[2023-03-11 11:16] LABS: African American GFR (CKD) >90 (>60 ml/min/1.73 sqM); Blood Urea Nitrogen 17 mg/dL (9-20); Non-African American GFR(CKD) 87 (>60 ml/min/1.73 sqM)
--- NOTE | 2023-03-11 11:53 | CT ---
EXAMINATION TYPE: CT chest w con DATE OF EXAM: 03/11/2023 COMPARISON: 11/28/2022 HISTORY: nodules CT DLP: 522.2 mGycm Automated exposure control for dose reduction was used. CONTRAST: CT scan of the chest is performed with IV Contrast, patient injected with 80cc mL of Isovue 300. FINDINGS: LUNGS: There is a 5.4 mm left upper lobe pulmonary nodule measuring about 8 mm previously with surrou nding groundglass density. Scattered calcified granulomas are redemonstrated. There is no pleural eff usion or pneumothorax seen. The tracheobronchial tree is patent. MEDIASTINUM: There are no greater than 1 cm hilar or mediastinal lymph nodes. No pericardial effusi on is seen. Thoracic aorta is of normal caliber. The heart is not enlarged. Moderate coronary artery calcifications. UPPER ABDOMEN: No significant abnormality appreciated. OTHER: No additional significant abnormality is seen. IMPRESSION: 1.There is a 5.4 mm left upper lobe pulmonary nodule measuring about 8 mm previously with surrounding groundglass density. Scattered calcified granulomas are redemonstrated.
== END | disposition home or self-care (01) ==
LOC: RADCTMAIN 10:28
PROVIDERS: ATTEND Internal Medicine Critical Care Medicine
DX: J98.4 Other disorders of lung (principal); R91.1 Solitary pulmonary nodule; L92.9 Granulomatous disorder of the skin and subcutaneous tissue, unspecified
CPT/HCPCS: 82565; 84520; 71260; 36415; Q9967